=== PATIENT | male | born 1985 | race Two or more races ===

== ENCOUNTER 2018-01-25 08:36 | Emergency (ER) | payer OTHER ==
[~2018-01-25] VITALS: Ht 170.2 cm; Wt 70.3 kg
[~2018-01-25 08:36] MED LIST: CIPRO500 MG PO; FLAGYL500MG PO; Intestinex CAP PO
== END 2018-01-25 12:40 | disposition home or self-care (01) ==
LOC: ER 08:36
DX: R51 Headache (principal)

== ENCOUNTER 2023-12-13 06:54 | Inpatient (IN) | payer OTHER ==
[~2023-12-13] VITALS: Ht 172.7 cm; Wt 66.7 kg
[2023-12-13] MEDS ORDERED: ONDANSETRON HCL 2 MG/ML VIAL IV STA (07:43)
[2023-12-13] MEDS ORDERED: MEPERIDINE HCL/PF 25 MG/ML VIAL IM STA (07:44)
[2023-12-13] MEDS ORDERED: DIATRIZOATE MEGLUMINE, SODIUM 30 ML BOTTLE PO STA (07:47)
[2023-12-13] MEDS ORDERED: 0.9 % SODIUM CHLORIDE 1,000 ML IV ONE (08:00)
[2023-12-13 08:25] LABS: HEMATOCRIT 41.9 % (39.0-48.0); HEMOGLOBIN 14.3 g/dL (13-16.00); MEAN CELL VOLUME 93.1 fL (80.0-100.00); MEAN CORPUSCULAR HEMOGLOBIN 31.8 pg (27.00-32.0); MEAN CORPUSCULAR HGB CONC 34.1 g/dl (32.0-36.0); PLATELET COUNT 270 K/uL (150-450); RED CELL DISTRIBUTION WIDTH 12.7 % (11.5-14.5)
[2023-12-13 09:03] LABS: INR 0.97; PROTHROMBIN TIME 10.2 SECONDS (9.0-11.5)
[2023-12-13 09:18] LABS: ALBUMIN 3.6 gm/dL (3.4-5.0); BILIRUBIN TOTAL 0.39 mg/dL (0.3-1.2); BILIRUBIN,CONJUGATED 0.12 mg/dL (0.0-0.2); BILIRUBIN,UNCONJUGATED 0.27 mg/dL (0.0-0.6); CALCIUM 9.5 mg/dL (8.5-10.1); CREATININE SERUM 0.79 mg/dL (0.70-1.30); GFR 110.98; GLOBULINA 4.1 G/DL (2.4-3.5); POTASSIUM 3.64 mEq/L (3.5-5.1); TOTAL PROTEIN 7.7 gm/dL (6.4-8.2)
[2023-12-13] MEDS ORDERED: KETOROLAC TROMETHAMINE 30 MG VIAL IV ONE ×2 (10:00→13:30)
[2023-12-13 10:11] LABS: URINE APPEARANCE Turbid; URINE BILIRRUBIN Negative (NEGATIVE); URINE BLOOD Negative; URINE COLOR Yellow; URINE GLUCOSE Negative (NEGATIVE); URINE LEUKOCYTE Negative; URINE NITRATE Negative; URINE PROTEIN Negative (NEGATIVE)
[2023-12-13 10:15] LABS: URINE BACTERIA 11.3 uL (0.0-1933); URINE EPITHELIAL CELLS 2.1 uL (0.0-38.8); URINE RBC 4.7 uL (0.0-20.8); URINE WBC 4.6 uL (0.0-23.2)
[2023-12-13] MEDS ORDERED: METRONIDAZOLE/SODIUM CHLORIDE 100 ML IV SCH (13:41)
[2023-12-13] MEDS ORDERED: ONDANSETRON HCL 4 MG in DEXTROSE 5 % IN WATER 50 ML IV SCH (13:41)
[2023-12-13] MEDS ORDERED: CIPROFLOXACIN IN 5 % DEXTROSE 200 ML IV SCH (13:41)
[2023-12-13] MEDS ORDERED: FAMOTIDINE/PF 20 MG/2 ML VIAL IV SCH (13:42)
[2023-12-13] MEDS ORDERED: MORPHINE SULFATE 2 MG/ML CARTRIDGE IV SCH (13:43)
[2023-12-13] MEDS ORDERED: MINERAL OIL 30 ML BLIST.PACK PO ONE (13:45)
[2023-12-13] MEDS ORDERED: GLYCERIN 2.1 GM SUPP.RECT RC ONE (13:45)
[2023-12-13] MEDS ORDERED: 0.9 % SODIUM CHLORIDE 1,000 ML IV SCH (13:45)
[2023-12-13] MEDS ORDERED: LACTULOSE 10 G/15 ML ML PO ONE (13:45)
[2023-12-13 14:46] LABS: AMYLASE 42 U/L (25-115); INR 0.98; LIPASE 15 U/L (13-75); PARTIAL THROMBOPLASTIN TIME 34.7 SECONDS (22.0-34.0); PROTHROMBIN TIME 10.3 SECONDS (9.0-11.5)
[2023-12-13] MEDS ORDERED: MORPHINE SULFATE 2 MG/ML CARTRIDGE IV STA (20:27)
[2023-12-13] MEDS ORDERED: MORPHINE SULFATE 2 MG/ML CARTRIDGE IV PRN (20:30)
[2023-12-14] MEDS ORDERED: DEXTROSE 5%-WATER 50ML IV.SOLN ONE (07:24)
[2023-12-14 13:03] LABS: C-REACTIVE PROTEIN 1.77 MG/DL (0.00-0.29); FERRITIN 127.9 NG/ML (26-388)
[2023-12-16] MEDS ORDERED: DEXTROSE 5%-WATER 50ML IV.SOLN ONE (00:22)
== END 2023-12-16 11:31 | disposition home or self-care (01) | DRG 391 ==
LOC: ER 06:54 → SEC-K 14:41 → MEDJ 14:41
PROVIDERS: General Practice; Internal Medicine Infectious Disease; ADMIT Internal Medicine; ATTEND Internal Medicine
PROC: BW21YZZ Computerized Tomography (CT Scan) of Abdomen and Pelvis using Other Contrast (ICD-10-PCS; principal; 2023-12-13)
PROC: BT04ZZZ Plain Radiography of Kidneys, Ureters and Bladder (ICD-10-PCS; 2023-12-13)
DX: K57.32 Diverticulitis of large intestine without perforation or abscess without bleeding (principal); U07.1 COVID-19